=== PATIENT | female | born 2000 | race Caucasian/White ===

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

== ENCOUNTER 2020-02-05 19:51 | Emergency (ER) | payer OTHER ==
[~2020-02-05] VITALS: Ht 160 cm; Wt 61.2 kg
[2020-02-05 20:09] VITALS: BP 107/48
[2020-02-05 20:49] VITALS: BP 107/48
== END 2020-02-05 20:48 | disposition home or self-care (01) ==
LOC: MED 19:51
DX: O23.41 Unspecified infection of urinary tract in pregnancy, first trimester (principal); O26.891 Other specified pregnancy related conditions, first trimester; R10.13 Epigastric pain; R11.0 Nausea; Z3A.01 Less than 8 weeks gestation of pregnancy; Z88.6 Allergy status to analgesic agent
CPT/HCPCS: 81002; 81025; 99283

== ENCOUNTER 2020-03-04 12:24 | Emergency (ER) | payer OTHER ==
[~2020-03-04] VITALS: Ht 160 cm; Wt 59.0 kg
[2020-03-04 12:26] VITALS: BP 111/69
--- NOTE | 2020-03-04 12:32 | NUR ---
Patient ambulated to bed 11. RN evaluating patient at bedside.
--- NOTE | 2020-03-04 12:32 | NUR ---
19/F presents ambulatory to ED, 10 weeks , A0, c/o n/v (x1 today) x3 days, unable to keep PO down. Reports intermittent mild lower abd pain when vomiting, denies any pain at this time. Denies vag bleed. Denies fever/chills, cough/congestion, CP/SOB, diarrhea/constipation or dysuria. Pt awake and alert, skin normal color warm and dry, rr even and unlabored. BS active x4, abd soft flat nontender. No BLE edema. hx hypothyroid rx synthroid, vitamins with folic acid
--- NOTE | 2020-03-04 12:46 | NUR ---
Dr. Roy is evaluating the patient at bedside.
[2020-03-04] MEDS ORDERED: NACL 0.9% 1,000 ML IV ONE (12:50)
[2020-03-04] MEDS ORDERED: METOCLOPRAMIDE 10 MG/2 ML INJ VIAL IVP ONE (12:50)
--- NOTE | 2020-03-04 13:26 | NUR ---
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
[2020-03-04 13:32] LABS: BASOPHILS % (AUTO) 0.3 % (0.0-2.0); EOSINOPHILS % (AUTO) 0.1 % (0.0-4.0); HEMATOCRIT 37.9 % (36-48); HEMOGLOBIN 12.7 g/dL (12.0-16.0); LYMPHOCYTES # (AUTO) 1.9 K/uL (2.5-16.5); LYMPHOCYTES % (AUTO) 21.2 % (20.5-51.1); MEAN CORPUSCULAR HEMOGLOBIN 29 pg (27-31); MEAN CORPUSCULAR HGB CONC 34 g/dL (33-37); MEAN CORPUSCULAR VOLUME 85.2 fL (80-94); MONOCYTES # (AUTO) 0.5 K/uL (0.8-1.0); MONOCYTES % (AUTO) 5.8 % (1.7-9.3); NEUTROPHILS # (AUTO) 6.5 K/uL (1.8-7.7); NEUTROPHILS % (AUTO) 72.6 % (42.2-75.2); PLATELET COUNT (AUTO) 207 K/uL (140-450); RED BLOOD CELL COUNT(AUTO) 4.46 MIL/uL (4.20-5.40); RED CELL DISTRIBUTION WIDTH 13.3 % (11.6-13.7)
[2020-03-04 13:58] LABS: ALBUMIN 3.9 g/dL (3.4-5.0); ANION GAP 14.7 (8-16); CARBON DIOXIDE 23.8 mmol/L (21-32); CREATININE 0.5 mg/dL (0.6-1.3); POTASSIUM 3.5 mmol/L (3.5-5.1); TOTAL BILIRUBIN 1.1 mg/dL (0.0-1.0)
[2020-03-04 14:58] VITALS: BP 116/70
--- NOTE | 2020-03-04 14:58 | NUR ---
Patient discharged with v/s stable. Written and verbal after care instructions given and explained. Patient alert, oriented and verbalized understanding of instructions. Ambulatory with steady gait. All questions addressed prior to discharge. ID band removed. Patient advised to follow up with PMD. Rx of zofran,vitamin b6 given. Patient educated on indication of medication including possible reaction and side effects. Opportunity to ask questions provided and answered.
== END 2020-03-04 14:58 | disposition home or self-care (01) ==
LOC: MED 12:24
DX: O21.0 Mild hyperemesis gravidarum (principal); O99.281 Endocrine, nutritional and metabolic diseases complicating pregnancy, first trimester; E86.0 Dehydration; Z3A.10 10 weeks gestation of pregnancy
CPT/HCPCS: 36415; 80053; 81002; 81025; 85025; 96374; 99283; J2765; J7030

== ENCOUNTER 2020-03-20 14:17 | Emergency (ER) | payer OTHER ==
[~2020-03-20] VITALS: Ht 160 cm; Wt 59.0 kg
[2020-03-20 14:19] VITALS: BP 112/83
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
[2020-03-20] MEDS ORDERED: NACL 0.9% 1,000 ML IV ONE (14:30)
--- NOTE | 2020-03-20 14:50 | NUR ---
lab at bedside
[2020-03-20 14:58] LABS: BASOPHILS % (AUTO) 0.4 % (0.0-2.0); EOSINOPHILS % (AUTO) 0.3 % (0.0-4.0); HEMATOCRIT 32.8 % (36-48); HEMOGLOBIN 11.1 g/dL (12.0-16.0); LYMPHOCYTES # (AUTO) 2.1 K/uL (2.5-16.5); LYMPHOCYTES % (AUTO) 27.3 % (20.5-51.1); MEAN CORPUSCULAR HEMOGLOBIN 29 pg (27-31); MEAN CORPUSCULAR HGB CONC 34 g/dL (33-37); MEAN CORPUSCULAR VOLUME 85.3 fL (80-94); MONOCYTES # (AUTO) 0.4 K/uL (0.8-1.0); MONOCYTES % (AUTO) 5.2 % (1.7-9.3); NEUTROPHILS # (AUTO) 5.1 K/uL (1.8-7.7); NEUTROPHILS % (AUTO) 66.8 % (42.2-75.2); PLATELET COUNT (AUTO) 213 K/uL (140-450); RED BLOOD CELL COUNT(AUTO) 3.85 MIL/uL (4.20-5.40); RED CELL DISTRIBUTION WIDTH 13.8 % (11.6-13.7); WHITE BLOOD COUNT (AUTO) 7.7 K/uL (4.5-11.0)
--- NOTE | 2020-03-20 15:02 | NUR ---
pt left to US via wheelchair.
[2020-03-20 15:09] LABS: ANION GAP 14.8 (8-16); CARBON DIOXIDE 22.7 mmol/L (21-32); CREATININE 0.6 mg/dL (0.6-1.3); POTASSIUM 3.5 mmol/L (3.5-5.1)
[2020-03-20 15:13] LABS: PROTHROMBIN TIME 10.3 secs (10.8-13.4)
--- NOTE | 2020-03-20 15:46 | NUR ---
ERMD at bedside for evaluation.
[2020-03-20] MEDS ORDERED: medroxyPROGESTERone 10 MG TAB PO ONE (16:05)
--- NOTE | 2020-03-20 16:14 | NUR ---
called pharmacy for provera, they will bring over
--- NOTE | 2020-03-20 16:15 | NUR ---
pt resting in bed at lowest position, HOB elevated , side rails x2 for pt safety and lights dimmed for pt comfort.
[2020-03-20 16:38] VITALS: BP 112/83
--- NOTE | 2020-03-20 16:40 | NUR ---
Patient discharged with v/s stable. Written and verbal after care instructions given and explained. Patient alert, oriented and verbalized understanding of instructions. Ambulatory with steady gait. All questions addressed prior to discharge. ID band removed. Patient advised to follow up with PMD. Rx of [place] given. Patient educated on indication of medication including possible reaction and side effects. Opportunity to ask questions provided and answered. Pt provided w/ undergarment and pants. Pt states boyfriend will be picking her up.
== END 2020-03-20 16:39 | disposition home or self-care (01) ==
LOC: MED 14:17
DX: N93.9 Abnormal uterine and vaginal bleeding, unspecified (principal); R42 Dizziness and giddiness; R55 Syncope and collapse; E03.9 Hypothyroidism, unspecified; Z79.899 Other long term (current) drug therapy; Z88.8 Allergy status to other drugs, medicaments and biological substances
CPT/HCPCS: 36415; 76830; 80048; 85025; 85610; 85730; 93005; 96360; 99285; Q0092; J7030

== ENCOUNTER 2020-08-06 23:23 | Emergency (ER) | payer OTHER ==
[~2020-08-06] VITALS: Ht 160 cm; Wt 58.6 kg
[2020-08-06 23:28] VITALS: BP 145/78
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
--- NOTE | 2020-08-06 23:55 | NUR ---
DR LEVY AT BEDSIDE EVALUATING PT
--- NOTE | 2020-08-07 00:17 | NUR ---
PT TAKEN TO CT SCAN VIA W/C
--- NOTE | 2020-08-07 00:57 | NUR ---
LAB AT BEDSIDE
[2020-08-07 01:10] LABS: BASOPHILS % (AUTO) 0.5 % (0.0-2.0); EOSINOPHILS % (AUTO) 0.4 % (0.0-4.0); HEMATOCRIT 34.7 % (36-48); HEMOGLOBIN 11.3 g/dL (12.0-16.0); LYMPHOCYTES # (AUTO) 3.4 K/uL (2.5-16.5); LYMPHOCYTES % (AUTO) 42.3 % (20.5-51.1); MEAN CORPUSCULAR HEMOGLOBIN 25 pg (27-31); MEAN CORPUSCULAR HGB CONC 33 g/dL (33-37); MEAN CORPUSCULAR VOLUME 75.5 fL (80-94); MONOCYTES # (AUTO) 0.6 K/uL (0.8-1.0); MONOCYTES % (AUTO) 7.7 % (1.7-9.3); NEUTROPHILS % (AUTO) 49.1 % (42.2-75.2); PLATELET COUNT (AUTO) 231 K/uL (140-450); RED CELL DISTRIBUTION WIDTH 19.7 % (11.6-13.7); WHITE BLOOD COUNT (AUTO) 8.1 K/uL (4.5-11.0)
[2020-08-07] MEDS ORDERED: cefTRIAXone 500 MG in LIDOCAINE MPF 1% 1 ML IM ONE (01:20)
[2020-08-07] MEDS ORDERED: AZITHROMYCIN 250 MG TAB PO ONE (01:20)
[2020-08-07] MEDS ORDERED: cefTRIAXone 500 MG VIAL ONE (01:25)
[2020-08-07] MEDS ORDERED: LIDOCAINE MPF 1% 5 ML ONE (01:26)
[2020-08-07 01:30] LABS: ANION GAP 15.5 (8-16); CARBON DIOXIDE 24.7 mmol/L (21-32); CREATININE 0.7 mg/dL (0.6-1.3); POTASSIUM 4.2 mmol/L (3.5-5.1)
[2020-08-07 01:36] LABS: TOTAL BILIRUBIN 0.7 mg/dL (0.0-1.0)
[2020-08-07 01:45] VITALS: BP 145/78
[2020-08-12 06:07] LABS: CHLAMYDIA TRACHOMATIS AMP DNA Negative (Negative)
== END 2020-08-07 01:45 | disposition home or self-care (01) ==
LOC: MED 23:23
DX: N94.10 Unspecified dyspareunia (principal); N93.0 Postcoital and contact bleeding; E03.9 Hypothyroidism, unspecified; Z20.2 Contact with and (suspected) exposure to infections with a predominantly sexual mode of transmission; Z88.6 Allergy status to analgesic agent; Z79.899 Other long term (current) drug therapy
CPT/HCPCS: 36415; 74176; 80053; 81002; 81025; 85025; 96372; 99284; J0696; J2001; 87491; 99283

== ENCOUNTER 2023-03-02 09:53 | Outpatient (CLI) | payer OTHER ==
[2023-03-02 11:17] LABS: BASOPHILS % (AUTO) 0.2 % (0.0-2.0); EOSINOPHILS % (AUTO) 0.4 % (0.0-4.0); HEMATOCRIT 34.5 % (36-48); HEMOGLOBIN 11.7 g/dL (12.0-16.0); LYMPHOCYTES # (AUTO) 2.5 K/uL (2.5-16.5); LYMPHOCYTES % (AUTO) 18.9 % (20.5-51.1); MEAN CORPUSCULAR HEMOGLOBIN 30 pg (27-31); MEAN CORPUSCULAR HGB CONC 34 g/dL (33-37); MEAN CORPUSCULAR VOLUME 87.7 fL (80-94); MONOCYTES # (AUTO) 0.7 K/uL (0.8-1.0); MONOCYTES % (AUTO) 5.2 % (1.7-9.3); NEUTROPHILS # (AUTO) 10.1 K/uL (1.8-7.7); NEUTROPHILS % (AUTO) 75.3 % (42.2-75.2); PLATELET COUNT (AUTO) 230 K/uL (140-450); RED BLOOD CELL COUNT(AUTO) 3.93 MIL/uL (4.20-5.40); RED CELL DISTRIBUTION WIDTH 13.1 % (11.6-13.7); WHITE BLOOD COUNT (AUTO) 13.5 K/uL (4.8-10.8)
== END 2023-03-02 20:05 | disposition home or self-care (01) ==
LOC: MLB 09:53
PROVIDERS: ATTEND Obstetrics & Gynecology
DX: Z13.1 Encounter for screening for diabetes mellitus (principal); Z13.0 Encounter for screening for diseases of the blood and blood-forming organs and certain disorders involving the immune mechanism
CPT/HCPCS: 36415; 82951; 85025

== ENCOUNTER 2023-03-12 18:30 | Observation (INO) | payer OTHER ==
[~2023-03-12] VITALS: Ht 157.5 cm; Wt 65.8 kg
[2023-03-12 18:40] VITALS: BP 116/74
[2023-03-12] MEDS ORDERED: LEVO0.173 PO (18:45)
[2023-03-12] MEDS ORDERED: PRETAB PO (18:45)
[2023-03-12] MEDS ORDERED: LACTATED RINGERS 1,000 ML IV SCH (19:00)
[2023-03-12] MEDS ORDERED: LACTATED RINGERS 500 ML IV ONE (19:00)
[2023-03-12] MEDS ORDERED: TERBUTALINE 1 MG/ML VIAL SUBQ ONE (20:31)
[2023-03-12] MEDS: TERBUTALINE 1 MG/ML VIAL SUBQ SCH ×2 (21:08→21:40)
== END 2023-03-12 22:48 | disposition home or self-care (01) ==
LOC: MLD 18:30
PROVIDERS: ADMIT Obstetrics & Gynecology; ATTEND Obstetrics & Gynecology
DX: O26.893 Other specified pregnancy related conditions, third trimester (principal); R10.9 Unspecified abdominal pain; Z20.822 Contact with and (suspected) exposure to COVID-19; Z3A.41 41 weeks gestation of pregnancy
CPT/HCPCS: 76805; 81000; 87426; 96360; 96361; 96372; G0378; G0379; J3105; J7120; Q0092

== ENCOUNTER 2023-03-28 23:04 | Observation (INO) | payer OTHER ==
[~2023-03-28] VITALS: Ht 160 cm; Wt 68.0 kg
[~2023-03-28 23:04] MED LIST changes: +LEVO0.173 PO; +PRETAB PO
[2023-03-28 23:49] VITALS: BP 112/68
[2023-03-29] MEDS ORDERED: LACTATED RINGERS 1,000 ML IV SCH (03:00)
[2023-03-29] MEDS ORDERED: MORPHINE SULFATE 4 MG/ML SYR IVP SCH (03:00)
== END 2023-03-29 08:09 | disposition home or self-care (01) ==
LOC: MLD 23:04 → UNDOADMOB 23:04 → MLD 03-29 00:10 → UNDODISOB 03-29 08:09
PROVIDERS: ADMIT Obstetrics & Gynecology; ATTEND Obstetrics & Gynecology
DX: O62.9 Abnormality of forces of labor, unspecified (principal); O42.913 Preterm premature rupture of membranes, unspecified as to length of time between rupture and onset of labor, third trimester; O99.713 Diseases of the skin and subcutaneous tissue complicating pregnancy, third trimester; L50.9 Urticaria, unspecified; Z3A.31 31 weeks gestation of pregnancy
CPT/HCPCS: 59025; 81000; 96361; 96374; G0378; J2270

== ENCOUNTER 2024-05-26 14:37 | Outpatient (CLI) | payer OTHER ==
[~2024-05-26 14:37] MED LIST changes: -LEVO0.1212 PO
== END 2024-05-26 19:18 | disposition home or self-care (01) ==
LOC: MRD 14:37
PROVIDERS: ATTEND Student in an Organized Health Care Education/Training Program
DX: M25.531 Pain in right wrist (principal)
CPT/HCPCS: 73100

== ENCOUNTER 2024-06-20 08:49 | Outpatient (CLI) | payer OTHER ==
[2024-06-20 09:51] LABS: BASOPHILS % (AUTO) 0.4 % (0.0-2.0); EOSINOPHILS % (AUTO) 0.5 % (0.0-4.0); HEMATOCRIT 39.9 % (36-48); HEMOGLOBIN 13.3 g/dL (12.0-16.0); LYMPHOCYTES # (AUTO) 3.6 K/uL (2.5-16.5); LYMPHOCYTES % (AUTO) 45.4 % (20.5-51.1); MEAN CORPUSCULAR HEMOGLOBIN 28 pg (27-31); MEAN CORPUSCULAR HGB CONC 33 g/dL (33-37); MEAN CORPUSCULAR VOLUME 82.8 fL (80-94); MONOCYTES # (AUTO) 0.4 K/uL (0.8-1.0); MONOCYTES % (AUTO) 4.6 % (1.7-9.3); NEUTROPHILS # (AUTO) 3.9 K/uL (1.8-7.7); NEUTROPHILS % (AUTO) 49.1 % (42.2-75.2); PLATELET COUNT (AUTO) 239 K/uL (140-450); RED BLOOD CELL COUNT(AUTO) 4.82 MIL/uL (4.20-5.40); RED CELL DISTRIBUTION WIDTH 14.1 % (11.6-13.7); WHITE BLOOD COUNT (AUTO) 7.9 K/uL (4.8-10.8)
[2024-06-20 10:18] LABS: ALBUMIN 4.5 g/dL (3.4-5.0); ANION GAP 12.3 (8-16); CARBON DIOXIDE 28.7 mmol/L (21-32); CHOL/HDL RATIO 2.9 (1-4.5); CREATININE 0.6 mg/dL (0.6-1.3); THYROID STIMULATING HORMONE 2.61 uIU/mL (0.34-3.74); TOTAL PROTEIN, SERUM 8.3 g/dL (6.4-8.2)
[2024-06-21 08:12] LABS: HIV 1/0/2 ABS, QUAL Non Reactive (Non Reactive)
[2024-06-21 09:07] LABS: HEPATITIS A ANTIBODY IGM Negative (Negative); HEPATITIS B CORE, IGM Negative (Negative); HEPATITIS B SURFACE ANTIGEN Negative (Negative)
[2024-06-21 12:07] LABS: T4 FREE (DIRECT) 1.66 ng/dL (0.82-1.77)
== END 2024-06-20 17:17 | disposition home or self-care (01) ==
LOC: MLB 08:49
PROVIDERS: ATTEND Student in an Organized Health Care Education/Training Program
DX: Z13.220 Encounter for screening for lipoid disorders (principal); Z11.59 Encounter for screening for other viral diseases; Z11.4 Encounter for screening for human immunodeficiency virus [HIV]; Z11.3 Encounter for screening for infections with a predominantly sexual mode of transmission; Z13.89 Encounter for screening for other disorder; E03.9 Hypothyroidism, unspecified
CPT/HCPCS: 36415; 80053; 80074; 84439; 84443; 85025; 86592; 86702; 87491